=== PATIENT | female | born 1960 | race Caucasian/White ===

== ENCOUNTER 2024-06-30 09:51 | Emergency (ER) | payer MEDICARE, OTHER, SELFPAY ==
[2024-06-30 09:52] VITALS: BP 171/104
--- NOTE | 2024-06-30 11:03 | ED.GENMED ---
History of Present Illness
<Mechelle Renner PA-C - Last Filed: 06/30/24 16:42>
General
Chief Complaint: Head Injury
Source: patient and spouse
Exam Limitations: none
Time Seen by Provider: 06/30/24 10:43
Nursing documentation reviewed up to this point in time: agreed with
History of Present Illness
History of Present Illness:
Patient is a 64-year-old female with history hypertension, hyperlipidemia presenting to the emergency department for evaluation of head injury. Patient states this morning she got out of bed and struck her head either on the wall or bed frame. She
believes she may have briefly lost consciousness. Patient states she immediately felt mildly nauseous and had a headache. She went back to bed for about an hour.
Patient woke up and came to the emergency department for evaluation.
At this time�patient states she has a headache and pain in the right cheek. She does have neck stiffness. Patient denies any visual changes, vomiting, weakness, numbness/tingling in lower extremities.
Patient not on any blood thinners.
Review of Systems
<Mechelle Renner PA-C - Last Filed: 06/30/24 16:42>
Review of Systems
Allergies reviewed?: Yes
All Other Systems: ROS reviewed and negative except as documented in HPI and ROS
Phy Exam
<Mechelle Renner PA-C - Last Filed: 06/30/24 16:42>
Physical Exam
Physical Exam:
Vitals: Hypertensive, otherwise vital signs stable. Afebrile
General: Patient is well appearing, no acute distress. Nontoxic-appearing
Skin: Warm and dry, no rashes or lesions
Head: Normocephalic. Contusion to right upper forehead. Contusion to right lateral zygoma.
Eyes: Sclera nonicteric. EOMs intact. No nystagmus. Pupils equal round reactive to light bilaterally. No proptosis.
Throat: Protecting airway
Neck: Normal ROM, no cervical spine tenderness, no meningismus
Cardiac: Regular rate and rhythm, no murmurs.
Pulm: Normal respiratory effort, no wheezes, rales, rhonchi heard on exam.
Abdomen: No abdominal tenderness.
Extremities: No evidence of cyanosis or edema
Neuro: AAOx3. CN II-XII intact. No focal neurologic deficits. Normal finger-nose. Strength 5 out of 5 in upper and lower extremities. Speech fluid.
Psychiatric: Normal affect.
Course
<Mechelle Renner PA-C - Last Filed: 06/30/24 16:42>
Orders/Labs/Results
Orders:
Orders
06/30/24 10:08
CT Head W/o Iv Contrast Urgent
Comment:
Reason For Exam: hit head on bedframe + loc
06/30/24 11:02
Acetaminophen [Tylenol] 650 mg PO NOW STA
Vital Signs
Initial and Last Documented VS:
Initial Vital Signs
Temp Pulse Resp BP Pulse Ox
98 F 89 16 171/104 100
06/30/24 09:52 06/30/24 09:52 06/30/24 09:52 06/30/24 09:52 06/30/24 09:52
Last Documented Vital Signs
Temp Pulse Resp BP Pulse Ox
98 F 70 13 154/90 99
06/30/24 09:52 06/30/24 11:30 06/30/24 11:30 06/30/24 11:17 06/30/24 11:30
<Brett Miller DO - Last Filed: 06/30/24 11:22>
Orders/Labs/Results
Orders:
Orders
06/30/24 10:08
CT Head W/o Iv Contrast Urgent
Comment:
Reason For Exam: hit head on bedframe + loc
06/30/24 11:02
Acetaminophen [Tylenol] 650 mg PO NOW STA
Vital Signs
Initial and Last Documented VS:
Initial Vital Signs
Temp Pulse Resp BP Pulse Ox
98 F 89 16 171/104 100
06/30/24 09:52 06/30/24 09:52 06/30/24 09:52 06/30/24 09:52 06/30/24 09:52
Last Documented Vital Signs
Temp Pulse Resp BP Pulse Ox
98 F 70 13 154/90 99
06/30/24 09:52 06/30/24 11:30 06/30/24 11:30 06/30/24 11:17 06/30/24 11:30
<Mechelle Renner PA-C - Last Filed: 06/30/24 16:42>
MDM/Problems Addressed
Differential Diagnosis Includes:
Not limited to: Contusion, concussion, facial fracture, intraparenchymal hemorrhage
MDM/Problems Addressed:
64-year-old female presenting to the emergency department following head injury this morning. There was possible loss of consciousness. No vomiting, visual changes, confusion. Patient presents with persistent headache, facial pain. Patient
hypertensive on arrival, otherwise vital signs are stable. Physical exam as above. Patient does have a contusion to right forehead and right lateral zygoma. No evidence of facial bone fracture. No evidence of associated jaw injury. Patient is
neurologically intact. No cervical spine tenderness. A CT head was obtained in triage which shows no acute intracranial abnormality. Suspect likely concussion and facial contusion. Patient was given Tylenol the emergency department. Patient
will be discharged with primary care follow-up, close return precautions. Patient seen with attending physician. Patient comfortable with plan.
Chronic conditions affecting care:
Hypertension, hyperlipidemia
Acute Exacerbation and/or Progression of Chronic Illness:
Acutely hypertensive
<Mechelle Renner PA-C - Last Filed: 06/30/24 16:42>
*Radiology
Radiology exam reviewed: preliminary read by ED provider and radiology read reviewed (No acute intracranial abnormality)
*Pulse Oximetry
Patient hypoxic: no
*EKG
Interpreted by ED Provider?: NA
*Technical Support Specialist Interpretation
Rate: Technical Support Specialist- N/A
*Critical Care Note
Total Time (30-74mins, 75-104mins- exclusive of procedures): Not Applicable
ED Attending Note
<Mechelle Renner PA-C - Last Filed: 06/30/24 16:42>
-
Portions of this chart may have been created with voice recognition software.� Occasional wrong word or��sound alike� substitutions may have occurred due to the inherent limitations of voice recognition software.
<Brett Miller DO - Last Filed: 06/30/24 11:22>
ED Attending Note
Patient seen and examined by attending physician: Yes
I performed the substantive portion of visit, reviewed & personally made and approve the management plan that is documented in note by myself or SAFIA.: Yes
ED Attending Note:
Patient is a 64-year-old female who thinks she awoke and walked into a wall this morning. Patient is pretty sure she had loss of consciousness and initially was nauseous but did not vomit. Patient felt lightheaded but did not feel disoriented.
Patient states her neck is sore. Patient denies any visual or speech difficulties. Patient denies any ataxia or focal weakness. Patient denies any numbness or paresthesias. On physical exam the patient has mild tenderness and swelling of along
the right zygoma. Extraocular muscles are intact. Otherwise the patient is normocephalic without deformity. Cervical spine shows no midline tenderness but mild paravertebral cervical tenderness. Neurologically the patient is intact. Abdomen
soft nontender. Back is nontender. Chest is nontender. CT scan is unremarkable. Patient likely suffered a concussion. Went over the guidelines for follow-up therapy.
Discharge Plan
Departure
Patient Disposition: Home (Routine Discharge)
Date of Disposition: 06/30/24
Time of Disposition: 11:11
Patient with high blood pressure during this ER visit?: Yes
Condition: Good
Covid-19: Not Applicable
Discharge Problem:
Concussion
Instructions: Concussion, Adult (DC), Contusion (DC), BLOOD PRESSURE
Activity Restrictions/Additional Instructions:
RETURN TO THE EMERGENCY DEPARTMENT WITH ANY SEVERE HEADACHE OR NECK PAIN, INTRACTABLE NAUSEA/VOMITING, VISION CHANGES, CHANGES IN MENTAL STATUS, WORSENING IN CURRENT SYMPTOMS, OR ANY OTHER SYMPTOMS
-As discussed that she likely sustained a concussion today.
-You should get plenty of rest. Stay well-hydrated. Avoid screen time/bright lights.
-You can take Tylenol and/or Motrin as needed for headache.
-Follow-up with your primary care for further evaluation/management and to ensure that symptoms are improving
Monitor your symptoms closely and return to the emergency department with any acute worsening/new symptoms or any other concerns
Interventions
Interventions:
*Risk Screen - Suicide Last Done: 06/30/24 09:52
*Neglect/Abuse Screening Last Done: 06/30/24 09:52
*Nursing Disposition Last Done: 06/30/24 11:42
ED- Neurological Assessment Last Done: 06/30/24 11:39
ED-Skin Assessment Last Done: 06/30/24 11:39
Discharge Date and Time
Discharge Date/Time: 06/30/24 11:43
Print Language: [place]
[2024-06-30 11:09] VITALS: BP 170/108
[2024-06-30 11:17] VITALS: BP 154/90
[2024-06-30] MEDS: TYLENOL 650 MG PO (11:19)
== END 2024-06-30 11:43 | disposition home or self-care (01) ==
LOC: EMR 09:51
PROVIDERS: EMERGENCY PHYSICIAN Emergency Medicine; FAMILY PHYSICIAN Nurse Practitioner
DX: S06.0XAA Concussion with loss of consciousness status unknown, initial encounter (principal); S00.83XA Contusion of other part of head, initial encounter; W22.09XA Striking against other stationary object, initial encounter; E78.5 Hyperlipidemia, unspecified; I10 Essential (primary) hypertension
CPT/HCPCS: 99284; 70450